=== PATIENT | female | born 1965 | race Caucasian/White ===

== ENCOUNTER 2023-06-19 07:19 | Day surgery (SDC) | payer MEDICAID ==
[~2023-06-19] VITALS: Ht 160 cm; Wt 74.8 kg
[2023-06-19] MEDS ORDERED: MIDAZOLAM HCL 5 MG/5 ML VIAL ONE (07:47)
[2023-06-19] MEDS ORDERED: MEPERIDINE 100 MG INJ. 100 MG/ML VIAL ONE (07:47)
[2023-06-19] MEDS ORDERED: fentaNYL CITRATE/PF 100 MCG/2 ML AMP ONE (09:17)
[2023-06-19] MEDS ORDERED: BENZOCAINE 20% 0.5mL UD SPRAY MM ONE (09:25)
[2023-06-19 13:22] VITALS: O2SAT 98
[2023-06-19 14:06] VITALS: BP_SYST 119; PULSE 71; RESP 16
== END 2023-06-19 12:24 | disposition home or self-care (01) ==
LOC: SDS 07:19 → STU 07:20 → SMU 07:29 → SDS 12:24
PROVIDERS: ATTEND Internal Medicine
DX: Z12.11 Encounter for screening for malignant neoplasm of colon (principal); K21.9 Gastro-esophageal reflux disease without esophagitis; K29.50 Unspecified chronic gastritis without bleeding; K29.80 Duodenitis without bleeding; K64.8 Other hemorrhoids; I10 Essential (primary) hypertension; E11.9 Type 2 diabetes mellitus without complications; Z90.49 Acquired absence of other specified parts of digestive tract; Z79.84 Long term (current) use of oral hypoglycemic drugs; Z79.899 Other long term (current) drug therapy
CPT/HCPCS: 45378; 43239; 82962; 88305; 88312; 88313; 99152; 99153; G0378; J2250; J3010; J2175